=== PATIENT | female | born 1935 | race Two or more races ===

== ENCOUNTER 2023-10-19 13:52 | Outpatient (CLI) | payer OTHER | END 2023-10-19 14:00 | disposition home or self-care (01) | LOC: SONOGRAMA 13:52 | PROVIDERS: ATTEND Pathology Anatomic Pathology & Clinical Pathology | DX: D34 Benign neoplasm of thyroid gland (principal); E07.89 Other specified disorders of thyroid; D44.0 Neoplasm of uncertain behavior of thyroid gland; E04.1 Nontoxic single thyroid nodule ==